=== PATIENT | female | born 2000 | race Caucasian/White ===

== ENCOUNTER 2020-09-28 19:22 | Emergency (ER) | payer BC ==
[2020-09-28] MEDS ORDERED: KEFLEX SUSP50 MG/ML GT (23:37)
[2020-09-28] MEDS ORDERED: KEFLEX750 MG PO (23:37)
== END 2020-09-29 00:09 | disposition home or self-care (01) ==
LOC: ER1 19:22
DX: S01.81XA Laceration without foreign body of other part of head, initial encounter (principal); S69.91XA Unspecified injury of right wrist, hand and finger(s), initial encounter; Z23 Encounter for immunization; V47.1XXA Car passenger injured in collision with fixed or stationary object in nontraffic accident, initial encounter; Y92.410 Unspecified street and highway as the place of occurrence of the external cause
CPT/HCPCS: 12052; 70450; 73130; 90471; 90715; 96365; 96376; 99284; J0690

== ENCOUNTER 2020-10-01 15:30 | Emergency (ER) | payer OTHER ==
[~2020-10-01 15:30] MED LIST: KEFLEX SUSP50 MG/ML GT; KEFLEX750 MG PO
[2020-10-01] MEDS ORDERED: IBU600 MG PO (19:01)
== END 2020-10-01 19:20 | disposition home or self-care (01) ==
LOC: ER1 15:30
DX: S62.610A Displaced fracture of proximal phalanx of right index finger, initial encounter for closed fracture (principal); S00.33XA Contusion of nose, initial encounter; J34.2 Deviated nasal septum; V86.69XA Passenger of other special all-terrain or other off-road motor vehicle injured in nontraffic accident, initial encounter; Y92.410 Unspecified street and highway as the place of occurrence of the external cause
CPT/HCPCS: 29130; 70486; 99283